=== PATIENT | male | born 1980 | race Caucasian/White ===

== ENCOUNTER 2020-08-20 13:08 | Observation (INO) | payer MEDICAID ==
[2020-08-20] MEDS ORDERED: LIDOCAINE 1% MPF 30 ML VIAL ONE (14:37)
[2020-08-20] MEDS ORDERED: BUPIVACAINE 0.5% PF 10 ML VIAL ONE (14:37)
--- NOTE | 2020-08-20 15:07 | RAD REPORT ---
EXAM DESCRIPTION: RAD - Hand Right 3 View - 08/20/2020 2:48 pm CLINICAL HISTORY: Right hand pain status post injury FINDINGS: An oblique minimally displaced fracture involves most of the second middle phalanx No dislocation
[2020-08-20] MEDS ORDERED: TETANUS & DIPHTHERIA TOX,ADULT 0.5 ML VIAL ONE (15:32)
[2020-08-20] MEDS ORDERED: CEFAZOLIN/SWI 1gm 1 GM/10 ML SYR ONE (15:32)
--- NOTE | 2020-08-20 16:40 | EDPHYS ---
Physician Documentation [facility] Name: Harpal Rios Age: 39 yrs Sex: Male : 1980 Arrival Date: 08/20/2020 Time: 13:11 Bed 6 Private MD: ED Physician Loyd Ruffin HPI: 08/20 14:30 This 39 yrs old Male presents to ER via Ambulatory with complaints of cp Laceration - finger. 14:30 The patient or guardian reports decreased range of motion, injury, pain. The complaints cp affect the right index finger. 14:30 Context: resulted from a crush injury, trailer. Onset: The symptoms/episode cp began/occurred just prior to arrival. Associated signs and symptoms: Pertinent positives: heavy bleeding, Pertinent negatives: cyanosis distally, decreased sensation distally. Historical: - Allergies: 13:53 No Known Allergies; ca1 - Home Meds: 13:53 venlafaxine oral oral [Active]; Lisinopril Oral [Active]; Klonopin Oral [Active]; ca1 - PMHx: 13:53 Depression; Hypertension; ca1 - PSHx: 13:53 None; ca1 - Immunization history:: Adult Immunizations up to date, Last tetanus immunization: < 5 years ago 2017. - Social history:: Smoking status: Patient denies any tobacco usage or history of. ROS: 14:35 Constitutional: Negative for fever. cp 14:35 Neck: Negative for pain with movement, pain at rest, stiffness. cp 14:35 Cardiovascular: Negative for chest pain. 14:35 Respiratory: Negative for cough, shortness of breath. 14:35 Abdomen/GI: Negative for abdominal pain, nausea, vomiting, and diarrhea. 14:35 Back: Negative for pain at rest, pain with movement. 14:35 MS/extremity: Positive for injury or acute deformity, decreased range of motion, of the right index finger, Negative for paresthesias. 14:35 Skin: Positive for laceration(s), of the right index finger. 14:35 All other systems are negative. Exam: 14:45 Constitutional: The patient appears in no acute distress, alert, awake, non-toxic, well cp developed, well nourished, obese. 14:45 Head/Face: Normocephalic, atraumatic. cp 14:45 Chest/axilla: Inspection: normal. 14:45 Cardiovascular: Rate: normal, Rhythm: regular. 14:45 Respiratory: the patient does not display signs of respiratory distress, Respirations: normal, no use of accessory muscles, no retractions, labored breathing, is not present, Breath sounds: are clear throughout, no decreased breath sounds. 14:45 Abdomen/GI: Inspection: abdomen appears normal. 14:45 Musculoskeletal/extremity: Extremities: grossly normal except: noted in the right index finger: decreased ROM, laceration, pain, swelling, tenderness, ROM: limited active range of motion, in the right index finger, Perfusion: the extremity is normally perfused throughout, Severe pain noted. 2 point discrimination intact 14:45 Neuro: Orientation: to person, place \T\ time. Mentation: is normal. Vital Signs: 13:50 BP 138 / 67; Pulse 82; Resp 16 S; Temp 97.9(TE); Pulse Ox 99% on R/A; Weight 133.81 kg ca1 (R); Height 6 ft. 0 in. (182.88 cm) (R); Pain 9/10; 17:00 BP 137 / 86; Pulse 69; Resp 16 S; Temp 98.0(TE); Pulse Ox 96% on R/A; aa5 13:50 Body Mass Index 40.01 (133.81 kg, 182.88 cm) ca1 Laceration: 16:35 Wound Repair of 4.5cm ( 1.8in ) subcutaneous laceration to right index finger. Linear cp shaped.. Distal neuro/vascular/tendon intact. Anesthesia: Digital block administered with 7 mls of Lido/Marcaine. Wound prep: Extensive cleansing by nurse by ca, Wound irrigation by nurse by ca. Skin closed with 7 1-0 Prolene using simple interupted sutures, loose closure. Dressed with wet to dry dressing. Patient tolerated well. MDM: 14:18 Patient medically screened. [facility] 15:19 Physician consultation: Reddy Marte MD was called at 15:19, left message on voicemail. 15:35 Physician consultation: Reddy Marte MD was contacted at 15:30, regarding consult, patient's condition, and will see patient in inpatient room, tomorrow, wants loose suturing closure of wound and wet to dry dressing, admit to hospitalist. 16:35 Data reviewed: vital signs, nurses notes, radiologic studies, plain films, and as a cp result, I will admit patient. 16:35 Counseling: I had a detailed discussion with the patient and/or guardian regarding: the cp historical points, exam findings, and any diagnostic results supporting the discharge/admit diagnosis, radiology results, the need for further work-up and treatment in the hospital. Response to treatment: improved. 16:40 Physician consultation: Nemesio Bates was called at 16:30, was contacted at 16:30, regarding admission, to the medical/surgical unit. patient's condition, and will see patient in ED, shortly. 08/20 14:24 Order name: XRAY Hand RIGHT 3 View; Complete Time: 15:13 cp 08/20 17:18 Order name: Diet Regular; Complete Time: 17:19 aa5 08/20 14:24 Order name: Dressing - Wound; Complete Time: 16:32 cp 08/20 14:24 Order name: Gloves, Sterile; Complete Time: 14:37 cp 08/20 14:24 Order name: Setup Suture Tray; Complete Time: 14:37 cp 08/20 15:13 Order name: IV; Complete Time: 15:15 cp Administered Medications: 14:32 Drug: Lidocaine (1 %) 10 ml {Note: administered to right index finger by PA.} Volume: 5 aa5 ml; Route: Infiltration; 14:32 Drug: Marcaine (0.5 %) 10 ml {Note: administered to right index finger by PA.} Volume: aa5 10 ml; Route: Infiltration; 15:20 Drug: Tetanus-Diphtheria Toxoid Adult 0.5 ml {Area Secretary: [employer]. Exp: aa5 12/20/2022. Lot #: [id number]. } Route: IM; Site: right deltoid; 15:45 Follow up: Response: No adverse reaction aa5 15:30 Drug: Ancef 1 grams Route: IVPB; Site: left antecubital; aa5 15:40 Follow up: Response: No adverse reaction aa5 Disposition: 17:15 Chart complete. 08/21 10:53 Co-signature as Attending Physician, Loyd Ruffin MD I agree with the assessment and barb plan of care. Disposition: 08/20/20 16:40 Hospitalization ordered by Nemesio Bates for Observation. Preliminary diagnosis is Displaced fracture of medial phalanx of right index finger - open. - Bed requested for Telemetry/MedSurg (observation). - Status is Observation. iw - Condition is Stable. - Problem is new. - Symptoms have improved. Signatures: Dispatcher [employer] EDCathie Odell, RN RN Loyd Smith MD MD cha Williams, Irene, RN RN Rere Devries RN RN aa5 Loyd Ward, CRESENCIO DUPONT cp Pauline Vasquez RN RN ca1 Corrections: (The following items were deleted from the chart) 08/20 17:10 16:40 Hospitalization Ordered by Nemesio Bates for Observation. Preliminary diagnosis kl is Displaced fracture of medial phalanx of right index finger - open. Bed requested for Telemetry/MedSurg (observation). Status is Observation. Condition is Stable. Problem is new. Symptoms have improved. cp 17:51 17:10 08/20/2020 16:40 Hospitalization Ordered by Nemesio Bates for Observation. iw Preliminary diagnosis is Displaced fracture of medial phalanx of right index finger - open. Bed requested for Telemetry/MedSurg (observation). Status is Observation. Condition is Stable. Problem is new. Symptoms have improved. kl
--- NOTE | 2020-08-20 16:40 | ER ---
Nurse's Notes [facility] Name: Harpal Rios Age: 39 yrs Sex: Male : 1980 Arrival Date: 08/20/2020 Time: 13:11 Bed 6 Private MD: Diagnosis: Displaced fracture of medial phalanx of right index finger-open Presentation: 08/20 13:50 Chief complaint: Patient states: lac on R index finger by a box blade <1 hr [employer]. ca1 Bleeding controlled. Coronavirus screen: Client denies travel out of the [place] in the last 14 days. At this time, the client does not indicate any symptoms associated with coronavirus-19. Ebola Screen: Patient negative for fever greater than or equal to 101.5 degrees Fahrenheit, and additional compatible Ebola Virus Disease symptoms Patient denies exposure to infectious person. Patient denies travel to an Ebola-affected area in the 21 days before illness onset. No symptoms or risks identified at this time. Initial Sepsis Screen: Does the patient meet any 2 criteria? No. Patient's initial sepsis screen is negative. Does the patient have a suspected source of infection? No. Patient's initial sepsis screen is negative. Risk Assessment: Do you want to hurt yourself or someone else? Patient reports no desire to harm self or others. Onset of symptoms was August 20, 2020. 13:50 Method Of Arrival: Ambulatory ca1 13:50 Acuity: RAMIRO 3 aa5 Historical: - Allergies: 13:53 No Known Allergies; ca1 - Home Meds: 13:53 venlafaxine oral oral [Active]; Lisinopril Oral [Active]; Klonopin Oral [Active]; ca1 - PMHx: 13:53 Depression; Hypertension; ca1 - PSHx: 13:53 None; ca1 - Immunization history:: Adult Immunizations up to date, Last tetanus immunization: < 5 years ago 2017. - Social history:: Smoking status: Patient denies any tobacco usage or history of. Screenin:20 Abuse screen: Denies threats or abuse. Nutritional screening: No deficits noted. aa5 Tuberculosis screening: No symptoms or risk factors identified. Fall Risk None identified. Assessment: 14:20 General: Appears uncomfortable, Behavior is calm, cooperative. Pain: Complains of pain aa5 in right index finger Pain currently is 9 out of 10 on a pain scale. Quality of pain is described as sharp, throbbing, Pain began today Is continuous. Neuro: Level of Consciousness is awake, alert, obeys commands, Oriented to person, place, time, situation. Cardiovascular: Patient's skin is warm and dry. Respiratory: Airway is patent Respiratory effort is even, unlabored, Respiratory pattern is regular, symmetrical. GI: No signs and/or symptoms were reported involving the gastrointestinal system. : No signs and/or symptoms were reported regarding the genitourinary system. EENT: No signs and/or symptoms were reported regarding the EENT system. Derm: Skin is pink, warm \T\ dry. Musculoskeletal: Range of motion: intact in all extremities. Injury Description: Laceration sustained to right index is approximately 1.5 in long. 14:35 Reassessment: x-ray at bedside . aa5 15:00 Reassessment: Soaked right hand in saline with iodine. aa5 15:00 Reassessment: Patient is alert, oriented x 3, equal unlabored respirations, skin aa5 warm/dry/pink. 15:20 Reassessment: Cleaned right index finger with Hibiclens and saline, pt tolerated well, aa5 increased steady bleeding noted to right index finger, PA was notified. Pressure being applied to site by patient. . 15:35 Reassessment: Bleeding to right index finger is noted to be soaking through gauze aa5 dressing, pt still applying pressure to site. PA was notified. . 16:08 Reassessment: Bleeding to right index finger remains unchanged after laceration repair. aa5 Dr. Ruffin was notified. . 16:11 Reassessment: Dr. Ruffin at bedside. jl7 16:15 Reassessment: Patient is alert, oriented x 3, equal unlabored respirations, skin aa5 warm/dry/pink. Pt instructed to notify staff if bleeding is noted. Awaiting room assignment. . 17:45 Reassessment: Patient is alert, oriented x 3, equal unlabored respirations, skin aa5 warm/dry/pink. Vital Signs: 13:50 BP 138 / 67; Pulse 82; Resp 16 S; Temp 97.9(TE); Pulse Ox 99% on R/A; Weight 133.81 kg ca1 (R); Height 6 ft. 0 in. (182.88 cm) (R); Pain 9/10; 17:00 BP 137 / 86; Pulse 69; Resp 16 S; Temp 98.0(TE); Pulse Ox 96% on R/A; aa5 13:50 Body Mass Index 40.01 (133.81 kg, 182.88 cm) ca1 ED Course: 13:11 Patient arrived in ED. as 13:51 Triage completed. ca1 13:53 Arm band placed on right wrist. ca1 14:13 Rere Hameed, RN is Primary Nurse. aa5 14:15 Loyd Ward PA is PHCP. cp 14:15 Loyd Ruffin MD is Attending Physician. cp 14:20 Patient has correct armband on for positive identification. Bed in low position. aa5 14:49 XRAY Hand RIGHT 3 View In Process Unspecified. EDMS 15:20 Inserted saline lock: 20 gauge in left antecubital area, using aseptic technique. aa5 15:50 Assist provider with laceration repair on right index finger using sutures. Performed aa5 by Loyd Ward PA Dressed with 4X4s, Patient tolerated well. 16:15 Assist provider with laceration repair on right index finger using 1 additional suture aa5 placed by Dr. Ruffin. Right index finger dressed with Surgicel and small Kerlix. No active bleeding noted at this time. . 16:39 Nemesio Bates is Hospitalizing Provider. cp 17:45 Patient admitted, IV remains in place. aa5 Administered Medications: 14:32 Drug: Lidocaine (1 %) 10 ml {Note: administered to right index finger by PA.} Volume: 5 aa5 ml; Route: Infiltration; 14:32 Drug: Marcaine (0.5 %) 10 ml {Note: administered to right index finger by PA.} Volume: aa5 10 ml; Route: Infiltration; 15:20 Drug: Tetanus-Diphtheria Toxoid Adult 0.5 ml {Director Human Services: [employer]. Exp: aa5 12/20/2022. Lot #: [id number]. } Route: IM; Site: right deltoid; 15:45 Follow up: Response: No adverse reaction aa5 15:30 Drug: Ancef 1 grams Route: IVPB; Site: left antecubital; aa5 15:40 Follow up: Response: No adverse reaction aa5 Outcome: 16:40 Decision to Hospitalize by Provider. cp 17:45 Admitted to Med/surg accompanied by tech, via wheelchair, with chart, Report called to nubia Sunshine RN 17:45 Condition: stable 17:45 Discharge instructions given to patient, Instructed on the need for admit, Demonstrated understanding of instructions. 17:51 Patient left the ED. iw Signatures: Dispatcher [employer] Dari Merida Irene, RN RN Rere Hameed RN RN [id number] Loyd Ward PA PA cp Leal, Jahala, RN RN jl7 Pauline Vasquez RN RN ca1 Corrections: (The following items were deleted from the chart) 17:14 13:50 Acuity: RAMIRO 4 ca1 aa5 17:36 17:00 BP 137 / 86; Pulse 69bpm; Resp 16bpm; Spontaneous; Pulse Ox 96% RA; aa5 aa5 08/21 09:42 10 17:45 Admitted to Med/surg accompanied by tech, via wheelchair, with chart, nubia [facility]
--- NOTE | 2020-08-20 17:02 | P.HP ---
Certification for Inpatient Patient admitted to: Observation With expected LOS: <2 Midnights Practitioner: I am a practitioner with admitting privileges, knowledge of patient current condition, hospital course, and medical plan of care. Services: Services provided to patient in accordance with Admission requirements found in Title 42 Section 412.3 of the Code of Federal Regulations Patient History Date of Service: 08/20/20 Reason for admission: Right index finger injury History of Present Illness: 39-year-old gentleman with a history of depression and hypertension presented emergency department after sustaining a work related injury to the right index finger. X-ray of the and report nondisplaced middle phalanx fracture. Dr. Marte was contacted recommended hospitalization for him to evaluate in the morning. Laceration was sutured and patient hospitalized for further management. - Past Medical/Surgical History -: Hypertension -: Depression -: None - Family History Father -: Hypertension - Social History Smoking Status: Never smoker Alcohol use: Yes CD- Drugs: No Place of Residence: Home Review of Systems Other: Except as documented, all other systems reviewed and negative. Physical Examination - Physical Exam General: Alert, In no apparent distress, Oriented x3 HEENT: Atraumatic, Mucous membr. moist/pink Neck: Supple, JVD not distended Respiratory: Clear to auscultation bilaterally, Normal air movement Cardiovascular: No edema, Regular rate/rhythm, Normal S1 S2 Capillary refill: <2 Seconds Gastrointestinal: Normal bowel sounds, Soft and benign, No tenderness Musculoskeletal: Other (Dressed right index finger laceration.) Integumentary: No rashes Neurological: Normal speech, Normal strength at 5/5 x4 extr Assessment and Plan - Problems (Diagnosis) (1) Fracture of phalanx of digit of hand Current Visit: Yes Status: Acute - Plan Place under observation. Empiric IV cefazolin. IV morphine p.r.n. for pain IV hydrate Consult to hand surgeon-Dr. Marte. - Advance Directives Does patient have a Living Will: No Does patient have a Durable POA for Healthcare: No
[2020-08-20 18:06] VITALS: BMI 40.0
[2020-08-20] MEDS: NA CHLORIDE 0.9% 1,000 ML IV SCH (18:28)
[2020-08-20] MEDS: MORPHINE 4 MG/ML SYR IV PRN ×2 (18:28→22:37)
[2020-08-20] MEDS ORDERED: INFLUENZA VACCINE (for 3y+) 0.5 ML DOSE IMVAC ONE (21:00)
[2020-08-20] MEDS ORDERED: MELATONIN 5 MG TABLET PO SCH (21:45)
[2020-08-20] MEDS: HYDROCODONE/APAP 7.5/325 MG TAB PO PRN (21:47)
[2020-08-20] MEDS ORDERED: HYDROMORPHONE HCL 1 MG/ML INJ IV ONE (23:34)
[2020-08-21] MEDS: CEFAZOLIN/SWI 1gm 1 GM/10 ML SYR IVP SCH ×3 (00:14→12:14)
[2020-08-21] MEDS: HYDROCODONE/APAP 7.5/325 MG TAB PO PRN (02:12)
[2020-08-21] MEDS: MORPHINE 4 MG/ML SYR IV PRN ×2 (02:39→06:21)
[2020-08-21] MEDS: NA CHLORIDE 0.9% 1,000 ML IV SCH ×2 (03:48→06:11)
[2020-08-21 04:28] LABS: Absolute Lymphocytes (CBC) 3.2 K/uL (0.7-4.9); Basophils % 0.4 % (0-1.3); Hematocrit 36.7 % (39.6-49.0); Lymphocytes % 34.2 % (15.3-44.8); MPV 7.9 fL (7.6-11.3); RBC Red Blood Cell Count 4.26 M/uL (4.33-5.43)
[2020-08-21 04:33] LABS: BUN Blood Urea Nitrogen 16 mg/dL (7-18); Bicarbonate 29 mmol/L (21-32); Glucose Level 132 mg/dL (74-106); Potassium 3.9 mmol/L (3.5-5.1); Sodium Level 138 mmol/L (136-145)
[2020-08-21 07:16] LABS: Urine Appearance CLEAR; Urine Bilirubin NEGATIVE (NEG); Urine Blood NEGATIVE (NEG); Urine Color YELLOW; Urine Glucose NEGATIVE (NEG); Urine Protein NEGATIVE (NEG); Urine Specific Gravity <=1.005 (1.005-1.030); Urine Urobilinogen 0.2 mg/dL (0.2-1.0)
[2020-08-21 07:31] LABS: Urine Microscopic Reflex NO UMIC
[2020-08-21] MEDS ORDERED: FENTANYL CITR 100 MCG/2 ML ONE (07:35)
[2020-08-21] MEDS ORDERED: ONDANSETRON 4 MG/2 ML VIAL ONE (07:35)
[2020-08-21] MEDS ORDERED: KETOROLAC 30 MG/ML INJ ONE (07:35)
[2020-08-21] MEDS ORDERED: MIDAZOLAM HCL 2 MG/2 ML INJ ONE (07:35)
[2020-08-21] MEDS ORDERED: LIDOCAINE 2% MPF 5 ML VIAL ONE ×2 (07:35→07:45)
[2020-08-21] MEDS ORDERED: propofoL 200 MG/20 ML VIAL IV ONE (07:35)
[2020-08-21] MEDS ORDERED: dexAMETHasone 4 MG/ML VIAL ONE (07:37)
[2020-08-21] MEDS ORDERED: ROPLVACAINE HCL 40 ML ONE (07:45)
[2020-08-21] MEDS ORDERED: POTASSIUM CL SA 10 MEQ TAB PO ONE (09:00)
--- NOTE | 2020-08-21 09:42 | RAD REPORT ---
EXAM DESCRIPTION: RAD - Hand Right 2 View - 08/21/2020 9:31 am CLINICAL HISTORY: Finger fracture FINDINGS: Fluoroscopy time 0.8 minutes. Sixteen fluoroscopic spot images obtained Open reduction internal fixation performed for a fracture second middle phalanx by 2 pins Surgery performed by Dr. Marte
[2020-08-21 10:09] VITALS: O2SAT 100
[2020-08-21] MEDS ORDERED: CODEINE 30MG/APAP 300MG TAB PO PRN (10:57)
--- NOTE | 2020-08-21 11:10 | OP ---
Surgeon: Reddy Marte MD Preoperative Diagnosis: Open fracture of the middle phalanx of the right index finger. Postoperative Diagnosis: Open fracture of the middle phalanx of the right index finger. Procedure Performed: Debridement of skin and subcu tissue, simple closure of the wound, percutaneous pinning and splint, surgical dressing. Anesthesia: General with block. Operative Note: After satisfactory block, the patient wanted general anesthesia. General anesthesia was induced. Then the right arm was prepped with Betadine scrub and paint dry, sterile drapes were applied in the usual manner. Arm was elevated, exsanguinated with an Esmarch, tourniquet inflated to 250 mmHg. The sutures were removed from previous closure. The wound was debrided of skin and subcutaneous tissue as needed. There was foreign body, which was debrided as wellfrom the wound. This was curetted, scrubbed with scrub brush, and jet lavaged, irrigated. The wound was then clean and then the C-arm was brought in. Axial K-wires were placed 0.035 in distal to proximal through the distal phalanx, middle phalanx and proximal phalanx. The MCP was left open. Two pins were placed. C-arm revealed adequate reduction and then tourniquet was released. Electrocautery was used for hemostasis. Wound was closed with 4-0 Prolene simple sutures. Dressed with Xeroform, 2-inch Arlette, and splint holding the PIP and DIP in extension. The patient tolerated procedure well and returned to Recovery. SAMAN/ELISABET Voice ID: [id number] Report ID: [id number] ONUR
--- NOTE | 2020-08-21 12:34 | P.DS ---
Admission Date: 08/20/20 Discharge Date: 08/21/20 Disposition: ROUTINE DISCHARGE Discharge Condition: FAIR Reason for Admission: Right index finger injury - Problems (1) Fracture of phalanx of digit of hand Current Visit: Yes Status: Acute Brief History of Present Illness: 39-year-old gentleman with a history of depression and hypertension presented em ergency department after sustaining a work related injury to the right index finger. X-ray of the and report nondisplaced middle phalanx fracture. Dr. Marte was contacted recommended hospitalization for him to evaluate in the morning. Laceration was sutured and patient hospitalized for further management. Hospital Course: Patient admitted to the medical floor, started on prophylactic IV antibiotics. He was seen and evaluated by Dr. Marte hold performed open reduction and internal fixation of the phalangeal fracture and the wound closed. Patient it may stable for discharge per Dr. Marte. He will follow with with Dr. Marte fin the office for wound check. Patient prescribed empiric Bactrim. Vital Signs/Physical Exam: Temp Pulse Resp BP Pulse Ox 98 F 76 13 138/92 H 93 08/21/20 10:22 08/21/20 10:22 08/21/20 10:22 08/21/20 10:22 08/21/20 06:51 General: Alert, In no apparent distress Respiratory: Clear to auscultation bilaterally, Normal air movement Cardiovascular: No edema, Regular rate/rhythm, Normal S1 S2 Gastrointestinal: Normal bowel sounds, Soft and benign Musculoskeletal: Other (Splinted right index finger.) Neurological: Other (Nonfocal.) Laboratory Data at Discharge: WBC 9.5 K/uL (4.3-10.9) 08/21/20 03:31 Hgb 13.2 g/dL (13.6-17.9) L 08/21/20 03:31 Hct 36.7 % (39.6-49.0) L 08/21/20 03:31 Plt Count 278 K/uL (152-406) 08/21/20 03:31 Sodium 138 mmol/L (136-145) 08/21/20 03:31 Potassium 3.9 mmol/L (3.5-5.1) 08/21/20 03:31 BUN 16 mg/dL (7-18) 08/21/20 03:31 Creatinine 0.92 mg/dL (0.55-1.3) 08/21/20 03:31 Glucose 132 mg/dL (74-106) H 08/21/20 03:31 Home Medications: Lisinopril/Hydrochlorothiazide [Lisinopril-Hctz 20-25 mg Tab] 20 mg PO DAILY 08/20/20 Venlafaxine HCl [Venlafaxine HCl ER] 75 mg PO DAILY 08/20/20 clonazePAM [Clonazepam] 1 mg PO BID 08/20/20 Codeine/APAP [Tylenol #3*] 1 tab PO Q4HP PRN tab 08/21/20 Smz./Tmp. [Bactrim Ds 800 MG/160 MG*] 1 tab PO BID tab 08/21/20 Diet: AHA Activity: Ad abhishek Followup: Reddy Marte MD [ACTIVE - CAN ADMIT] - (Next week.) Jose J Gibson, DO [Primary Care Provider] -
[2020-08-21 14:04] VITALS: BP 128/63; TEMP 97
[2020-08-21] MEDS ORDERED: SMZ./TMP. 800/160 MG TABLET PO SCH (21:00)
== END 2020-08-21 13:15 | disposition home or self-care (01) ==
LOC: ER 13:08 → ERHOLD 16:46 → 2ND 17:39
PROVIDERS: ADMIT Internal Medicine; ATTEND Internal Medicine
PROC: 0PST34Z Reposition Right Finger Phalanx with Internal Fixation Device, Percutaneous Approach (ICD-10-PCS; principal; 2020-08-21 08:00)
DX: S62.620B Displaced fracture of middle phalanx of right index finger, initial encounter for open fracture (principal); F32.9 Major depressive disorder, single episode, unspecified; I10 Essential (primary) hypertension; Z20.828 Contact with and (suspected) exposure to other viral communicable diseases; W23.0XXA Caught, crushed, jammed, or pinched between moving objects, initial encounter; Y99.0 Civilian activity done for income or pay; Z23 Encounter for immunization
CPT/HCPCS: 26727; 85025; 80048; 36415; 81003; 73130; 73120; 90471; 90714; 96374; 99285; U0003; J2704; J1100; J2250; J3010; J2795; J1170; J0690 ×2; G0378 ×4; J7030 ×2; J2405